=== PATIENT | female | born 1975 | race Caucasian/White ===

== ENCOUNTER 2019-07-06 11:53 | Outpatient (CLI) | payer BC, SELFPAY ==
--- NOTE | 2019-07-06 | XR_ITS ---
WS: [id number] SHOULDER LEFT TECHNIQUE: 3 views of the left shoulder CLINICAL INFORMATION: SEVERE SHOULDER PAIN COMPARISON: None. FINDINGS: Enthesophyte at the supraspinatus insertion consistent with calcific tendinitis. Mild rotator cuff ar thropathy with narrowing of the subacromial space. AC joint is normal. Distal clavicle is normal. No acute fractures. XR/XR shoulder LT min 2V* [id number] IMPRESSION: 1. Mild rotator cuff arthropathy. 2. Calcific tendinitis with enthesophytes at the supraspinatus insertion..
== END 2019-07-06 11:54 | disposition home or self-care (01) ==
LOC: RADOUTREAD 07-07 10:27
PROVIDERS: Family Provider Family Medicine; Visit Provider Nurse Practitioner Family
DX: M75.32 Calcific tendinitis of left shoulder (principal); M25.512 Pain in left shoulder

== ENCOUNTER 2019-08-03 10:33 | Outpatient (CLI) | payer BC, SELFPAY ==
--- NOTE | 2019-08-03 10:39 | MM_ITS ---
WS: [id number] SCREENING DIGITAL MAMMOGRAM WITH CAD HISTORY: SCREENING COMPARISON: 07/17/2011 and 03/28/2004 Bilateral CC and MLO views submitted. Computer aided detection analyzed. Breast composition: There are scattered areas of fibroglandular density. No suspicious masses, microc alcifications or architectural distortion. There are a few small benign calcifications. MM/[id number] IMPRESSION: BI-RADS: 2-Benign FOLLOW UP: 1 Year Follow-up
== END 2019-08-03 10:34 | disposition home or self-care (01) ==
LOC: RADSHAW 10:37
PROVIDERS: Family Provider Family Medicine; PCP Nurse Practitioner Family; Visit Provider Nurse Practitioner Family
DX: Z12.31 Encounter for screening mammogram for malignant neoplasm of breast (principal)
CPT/HCPCS: 77067

== ENCOUNTER 2021-07-23 09:45 | Outpatient (CLI) | payer OTHER, SELFPAY ==
--- NOTE | 2021-07-23 09:55 | MM_ITS ---
WS: [id number] BILATERAL DIGITAL SCREENING MAMMOGRAPHY WITH CAD CLINICAL INFORMATION: SCREENING HISTORY: Screening mammogram. No current complaints. COMPARISON: August 03, 2019 TECHNIQUE: Bilateral CC and MLO views. FINDINGS: The breasts are composed of heterogeneous fibroglandular density tissue, which can limit the detectio n of small underlying mass lesions. A few punctate calcifications. Stable clustered calcifications ri ght breast. No suspicious mass, asymmetry, calcifications, or architectural distortion. No evidence o f malignancy. MM/[id number] IMPRESSION: BI-RADS: 2-Benign FOLLOW UP: 1 Year Follow-up Recommend return to annual screening mammography.
== END 2021-07-23 09:46 | disposition home or self-care (01) ==
LOC: RADSHAW 09:54
PROVIDERS: PCP Nurse Practitioner Family; Visit Provider Nurse Practitioner Family
DX: Z12.31 Encounter for screening mammogram for malignant neoplasm of breast (principal)
CPT/HCPCS: 77067

== ENCOUNTER → 2021-08-29 14:35 | Outpatient (BNVA) | payer OTHER, SELFPAY | PROVIDERS: PCP Nurse Practitioner Family; Referring Provider Nurse Practitioner Family; Visit Provider Obstetrics & Gynecology | DX: R32 Unspecified urinary incontinence (principal) | CPT/HCPCS: 87086 ==

== ENCOUNTER → 2021-10-15 07:59 | Outpatient (BNVA) | payer OTHER, SELFPAY | PROVIDERS: PCP Nurse Practitioner Family; Visit Provider Obstetrics & Gynecology | DX: Z01.812 Encounter for preprocedural laboratory examination (principal); Z01.818 Encounter for other preprocedural examination; N81.2 Incomplete uterovaginal prolapse; N39.3 Stress incontinence (female) (male); Z20.822 Contact with and (suspected) exposure to COVID-19 | CPT/HCPCS: 80053; 81000; 81025; 87635 ==

== ENCOUNTER 2021-10-17 13:53 | Observation (INO) | payer OTHER, SELFPAY ==
[2021-10-12 08:43] VITALS: BMI 39.9
[2021-10-12 09:26] LABS: Basophils % 0.7 %; Eosinophils # 0.1 10^3/uL (0.0-0.8); Eosinophils % 2.3 %; Hematocrit 41.7 % (37.0-47.0); Hemoglobin 13.6 g/dL (11.5-15.3); Lymphocytes # 1.9 10^3/uL (0.8-4.8); Mean Corpuscular HGB Conc 32.6 g/dL (30.0-36.0); Monocytes # 0.4 10^3/uL (0.2-0.9); Monocytes % 7.4 %; Neutrophils # 3.42 10^3/uL (1.8-7.7); Neutrophils % 57.3 %; Nucleated Red Blood Cells % 0 %; Platelet Count 425 10^3/cmm (130-400); Red Blood Count 4.85 10^6/uL (4.1-5.3); Red Cell Distribution Width 13.5 % (12.1-15.1)
[2021-10-12 09:52] LABS: Anion Gap 13.2 (5-19); Blood Urea Nitrogen 15 mg/dL (6-20); Calcium 8.4 mg/dL (8.5-10.5); Carbon Dioxide 25 mmol/L (22-29); Chloride 103 mmol/L (98-107); Glomerular Filtration Rate 107.2 mL/min (90-130); Glucose 90 mg/dL (65-115); Osmolality Calculated 284 mOsm/kg (285-295); Potassium 4.2 mmol/L (3.5-5.1); Sodium 137 mmol/L (136-145)
--- NOTE | 2021-10-12 12:36 | ANES.PREANE2 ---
Pre-Anesthetic Assessment Height/Weight: Height 1.65 m Weight 108.862 kg Preop Diagnosis: Uterine prolapse Operation Date: 10/17/21 08:00 Proposed Procedures p Laparoscopic Assist Vaginal Hysterectomy(Not Applicable) - Khang Skelton MD s Anterior Repair with allograft(Not Applicable) - Khang Skelton MD s Sling(Not Applicable) - Khang Skelton MD Familial anesthetic complications: Patient has hx of PONV and pruritus with narcotics Was Beta Jennie taken within 24 hours: N/A Was Clonidine taken within 24 hours: N/A Social No alcohol and No tobacco Exam alert, oriented x 3, clear to auscultation bilaterally and regular rate & rhythm Airway Submandibular: within normal limits Cervical ROM: within normal limits Mallampati: Class II Dentition: false History/ROS No significant complaints Pulmonary None reported CV/HEM None reported METS > 4 Uterine prolapse Hepatic None reported GI Gastroesophageal Reflux Disease (Well controlled ) Metabolic None reported Musc/skel Osteoarthritis/DJD Neuropsych None reported Anesthetic Plan ASA status: 2 Anesthesia: Anesthesia Evaluation and General Other: We discussed risk and benefits of general anesthesia including PONV, sore throat (sometimes severe), corneal abrasion, positioning and peripheral nerve injuries, life threatening allergic reaction, post operative ICU admission requiring prolonged intubation, stroke, heart attack, , and rare incidences of recall. Patient consents to proceed with general anesthesia. Risk of > 500 ml blood loss (7ml/kg in children): No Other Pertinent Information Plan diphenhydramine and scopalamine for hx of PONV and pruritus with narcotics Medications/Allergies Home Medications Medication Instructions Recorded Confirmed Last Taken Type diclofenac sodium 75 mg 75 mg PO BID 08/29/21 10/12/21 Unknown History tablet,delayed release omeprazole 20 mg capsule,delayed 20 mg PO DAILY 08/29/21 10/12/21 Unknown History release Allergies Allergy/AdvReac Type Severity Reaction Status Date / Time codeine Allergy Throat Verified 10/12/21 08:41 swelling--can take hydrocodone [facility] Anesthesia Medical History Arthritis Diagnosed in 2017 and she takes pain medication as needed and has received intra-articular steroid injections. Managed by PMD GERD (gastroesophageal reflux disease) Diagnosed in her 30s and has been on medication. Has not had an endoscopy. No pertinent past medical history Denies diabetes, asthma, hypertension, seizures, DVT/PE PCP: JOLIE Modi Surgical History H/O lumpectomy From right axilla benign per patient S/P section x4 1994, 1996, 1998 and 2000 S/P dilation and curettage 1993-done for miscarriage S/P tubal ligation 2001--laparoscopic tubal ligation Family History Mother Breast cancer diagnosed at age 41 or 42 Grandmother Colon cancer paternal, diagnosed in her 90s Denies family history of Ovarian cancer Dementia Heart disease Hyperlipidemia Suicide Hypertension Uterine cancer Thyroid condition Stroke Data Anesthesia : 10/12/21 09:00 10/12/21 09:00 Short CBC 10/12/21 Range/Units 09:00 WBC 6.0 (4.0-10.0) 10^3/uL Hgb 13.6 (11.5-15.3) g/dL Hct 41.7 (37.0-47.0) % MCV 86.0 (81-99) fl Plt Count 425 H (130-400) 10^3/cmm Neut % (Auto) 57.3 % Neut # (Auto) 3.42 (1.8-7.7) 10^3/uL BMP 10/12/21 09:00 Sodium 137 Potassium 4.2 Chloride 103 Carbon Dioxide 25 BUN 15 Creatinine 0.6 Glucose 90 Calcium 8.4 L Blood Bank 10/12/21 09:00 Blood Type A Positive Rho(D) Type Positive Antibody Screen Negative Cardiac Studies: No Data to Display
[2021-10-17] VITALS (33 sets, daily range): BP systolic 66–148; BP diastolic 30–93; PULSE 47–91; RESP 4–22; TEMP 36.1–37; O2SAT 92–100; BMI 39.9
[2021-10-17 06:48] LABS: OR HCG Qualitative Urine Negative (Negative)
[2021-10-17] MEDS: scopolamine 1.5 Patch 1 PATCH TRANSDERMA (07:11)
[2021-10-17] MEDS: sodium chloride 0.9% 1,000 ML 30 ML IV (07:11)
--- NOTE | 2021-10-17 07:37 | P.ANESUD_ITS ---
Pre-Anesthetic Update Pre-Anesthetic Assessment: Date of Surgery/Procedure: 10/17/21 Preop Lily gnosis: Uterovaginal prolapse with cystocele stage III and stress urinary incontine Proposed Procedure: Operation Date: 10/17/21 08:00 Proposed Procedures p Laparoscopic Assist Vaginal Hysterectomy(Not Applicable) - Khang Skelton MD s Anterior Repair with allograft(Not Applicable) - Khang Skelton MD s Sling(Not Applicable) - Khang Skelton MD Any changes to Pre-Anesthetic Assessment?: No Last Intake: Intake Last Liquid Date 10/16/21 Last Liquid Time 23:59 Last Solid Date 10/16/21 Last Solid Time 20:00 Vitals: Temperature 97.7 F 10/17/21 06:41 Temperature Source Temporal Artery S can 10/17/21 06:41 Pulse Rate 63 10/17/21 06:41 Respiratory Rate 17 10/17/21 06:41 Blood Pressure 148/93 10/17/21 06:[address] n 111 10/17/21 06:41 Pulse Oximetry 100 10/17/21 06:41 Oxygen Delivery Me thod 10/17/21 06:46 Exam: Pre-Anes Outpt Exam: alert, oriented x 3, clear to auscultation bilaterally and regular rate & rhythm Cardiac Studies: No Data to Display
--- NOTE | 2021-10-17 08:18 | W.PM.OPSUD ---
Surgery/Procedure H&P Update DATE OF PROCEDURE: October 17, 2021 DATE H&P PERFORMED: 10/15/21 H&P UPDATE INFORMATION: I have reviewed H&P completed within last 30 days, I have examined patient prior to procedure and No changes to prior documentation PREOP DIAGNOSIS: Uterovaginal prolapse with cystocele stage III and stress urinary incontine PLANNED PROCEDURE: Operation Date: 10/17/21 08:00 Proposed Procedures p Laparoscopic Assist Vaginal Hysterectomy(Not Applicable) - Khang Skelton MD s Anterior Repair with allograft(Not Applicable) - Khang Skelton MD s Sling(Not Applicable) - Khang Skelton MD
[2021-10-17] MEDS: estrogens Conjugated Cream 30 gm 1 APPLIC VAGINAL (11:55)
--- NOTE | 2021-10-17 12:12 | PM.OP ---
Operative Report Date of procedure: October 17, 2021 Pre-op diagnosis: Preop Diagnosis Uterovaginal prolapse with cystocele stage III and stress urinary incontine Post-op diagnosis: Same as above Procedure done: Laparoscopic-assisted vaginal hysterectomy with anterior colporrhaphy augmented with allograft, single incision mid urethral sling, posterior colporrhaphy, cystoscopy Pathology: Uterus Surgeon: Khang Skelton MD Estimated blood loss (mL): 500 IV fluids (mL): 1,900 Urine output (mL): 600 Complications: Bleeding Procedure: After informed consent, the patient was taken to the operating room where general anesthesia was administered. Pre-Procedure Time-Out verifying the correct patient identity, correct procedure verified with consent, correct site and side, correct patient position, availability of correct implants and any special equipment or requirements was performed and acknowledge by the OR team. She was placed in the dorsal lithotomy position and prepped and draped in sterile fashion. The patient was examined under anesthesia and found to have a normal uterus with normal adnexa. A Oleary catheter was placed in the bladder. A weighted speculum was placed in the vagina, and the anterior lip of cervix was grasped with the single toothed tenaculum. A uterine manipulator was advanced into the endocervical. Tenaculum was removed after uterine manipulator was secured. The speculum was removed from the vagina. The attention was brought to abdomen after changing gloves. The base of the umbilicus was grasped with an Allis clamp and with 2 towel clamp bilaterally tenting up the umbilicus an intraumbilical incision was made with a scalpel. While tenting up on the abdomen, a Verres needle with sleeve was admitted into the intra-abdominal cavity. A saline drop test was performed and noted to be within normal limits. Pneumoperitoneum was attained with 4 liters of carbon dioxide. The Verres needle was removed. Then a 5 mm Optiview trocar and cannula were inserted under direct visualization without complications. Trocars were removed and the laparoscope was inserted and connected to the video camera light source. A 5 mm trocar and cannula were placed in the right lower quadrant under direct visualization after infiltration of 0.5% Marcaine with epinephrine. A 5 mm trocar and cannula were placed in the left lower quadrant under direct visualization after infiltration of 0.5% Marcaine with epinephrine. The pelvic contents were visualized and noted a small uterus, deep cul-de-sac, normal bilateral fallopian tubes and ovaries, normal appendix, and both ureters were identified crossing the pelvic brim and pelvic sidewall. The left round ligament was coagulated and transected using ENseal device. The left broad ligament was opened down to the level of the uterine artery and vein. The left infundibulopelvic ligament was coagulated using ENseal and then transected. The right round ligament was coagulated and transected using ENseal, and the right broad ligament was opened down to the level of the right uterine artery and vein. The right infundibulopelvic ligament was coagulated and transected using ENseal. Peritoneum of the lower uterine segment was entered using ENseal, and the bladder was dissected off the lower uterine segment using blunt dissection. Careful inspection revealed complete hemostasis. A weighted speculum was placed in the posterior vaginal wall and the right-angle retractor used to visualize the cervix. The cervix was grasped across the anterior lip with a single-toothed tenaculum and circumferentially infiltrated with 1% Xylocaine with epinephrine at this time. The cervix was circumferentially excised with the scalpel. The vaginal mucosa was dissected superiorly with sharp dissection. The anterior peritoneal reflection was identified, and it was entered with Metzenbaum scissors. A posterior colpotomy was made through the cul-de-sac space. The posterior peritoneum was identified in similar fashion and Metzenbaum scissors were used to enter the cul-de-sac. At this time, a weighted speculum was placed, advanced posteriorly into the cul-de-sac. At this time, the left and right uterosacral ligaments were isolated and ligated with 0 Vicryl. The ENseal device was then used in a serial fashion up through the cardinal ligaments bilaterally. Finally, the uterine arteries were cross-clamped, cut, and ligated with the ENseal device. ENseal device was then used up through the broad ligaments superiorly and finally the uterus was rotated posteriorly. The left and right tubes were then cross-clamped and ligated with ENseal device. The uterus was excised and submitted for pathologic evaluation. At this time, [place] clamps were used to grasp the left and right ovaries, and they were removed per the patient's request. Curved Zeppelin clamps were placed across the infundibulopelvic ligaments bilaterally and curved scissors were used to excise the specimen from the Zeppelin clamp. The pedicles were doubly ligated bilaterally with 0 Vicryl and hemostasis noted to be achieved. No other abnormalities were noted in the pelvic cavity. A vertical midline incision was made beneath the midurethra, nearly 1.5 cm length. Careful submucosal dissection was performed bilaterally up to the interior portion of the inferior pubic ramus. The insertion of adductor longus tendon on the patient?s pubic ramus was identified as reference land darian. Palpated the notch along the internal edge of ischiopubic ramus where the adductor longus tendon and the inferior pubic ramus meet. The Altis single incision sling (SIS) was selected. Then the needle of the SIS inserted aiming at the location of this notch. One of the integrated self-fixating tips place onto the needle by sliding it over the end of the needle. The needle/sling assembly was inserted toward the location of identified reference notch making sure that the flat of the handle is perpendicular to the desired path. The needle was tracked along the posterior surface of the ischiopubic ramus until the midline darian on the mesh is approximately at the midline position under the urethra. The needle was removed and the same was repeated on the contralateral side until the appropriate sling tension under the urethra was achieved ensuring that the mesh lays flat. The needle was removed and vaginal incision was closed in a running interlocking fashion with 2-0 Vicryl. The vaginal mucosa was then injected in the midline with normal saline. The vaginal mucosa was scored in the midline with the Bovie approximately 1 cm medial to the urethral meatus to 1 cm distal to the vaginal cuff . This vaginal mucosa was then undermined and then incised in the midline with the Metzenbaum scissors. The lateral aspects of the vaginal mucosa were then grasped with the Allis clamps and the vaginal mucosa was then dissected off the underlying fascia with the Metzenbaum scissors. Again, there was noted to be quite a bit of oozing at the incision, which was controlled with cautery. After adequate dissection was performed, bilaterally. An the Coloplast allograft was modified at time of application to fit spacea, 4 x 4 cm piece . Coloplast allograft placed in front of cystocele ready to be implanted facing the vagina mucosa. Suture is placed at distal end of graft and placed towards vaginal cuff. Final suture is placed on proximal portion of the graft to complete the placement overlying the bladder. Then Interrupted vertical mattress sutures of 0 Vicryl were used to elevate the cystocele superiorly. The excessive vaginal mucosa was then trimmed with the Metzenbaum scissors and the vaginal mucosa was then reapproximated in the running interlocking fashion with 2-0 Vicryl. A posterior repair was performed next. An incision was made across the introitus. Metzenbaum scissors were used to tunnel beneath posterior vaginal mucosa until the apex of the rectocele bulge was reached. At this point, the rectum was from the posterior vaginal mucosa using sharp and blunt dissection, and the rectal bulge imbricated in the midline with interrupted sutures of 2-0 vicryl suture. Levator ani muscles on either side were approximated in the midline with interrupted 0 Vicryl sutures. Excess posterior vaginal mucosa was excised, and the vaginal episiotomy was repaired by approximating the posterior vaginal mucosa with a suture of Vicryl #0. At this time, instruments were removed from the patient's abdominopelvic cavity. Vaginal cuff closure and peritoneum were incorporated into one layer with 0 Vicryl suture in a continuous running interlocking fashion. Hemostasis was noted to be achieved. Then the Oleary catheter was removed and cystoscope was inserted. The bladder was filled with sterile water. Complete evaluation of the bladder mucosa was performed noting no lacerations, dimpling, tears, bleeding of the mucosa or muscular layers. Both ureteral orifices were identified. Prompt excretion of urine from both ureteral orifices was noted. Cystoscope was withdrawn. The Oleary catheter was replaced. Oleary catheter was then placed yielding clear lucía urine. A vaginal packing with Premarin cream was placed to provide support during the healing process. The patient tolerated the procedure well and was taken to the recovery room in a stable condition. Sponge and needle counts were correct x3.
[2021-10-17] MEDS: albumin 12.5 GM/50 ML VIAL IV (13:15)
[2021-10-17] MEDS: fentaNYL 50 mcg/mL INJ 2mL IVP (13:38)
[2021-10-17 14:21] LABS: Basophils % 0.2 %; Eosinophils % 0.1 %; Hemoglobin 12.5 g/dL (11.5-15.3); Lymphocytes # 1.3 10^3/uL (0.8-4.8); Lymphocytes % 7.4 %; Mean Corpuscular HGB Conc 30.5 g/dL (30.0-36.0); Mean Corpuscular Hemoglobin 27.7 pg (28.0-34.0); Mean Corpuscular Volume 90.7 fl (81-99); Mean Platelet Volume 9.4 fL (7.4-10.4); Monocytes # 0.2 10^3/uL (0.2-0.9); Monocytes % 1.3 %; Neutrophils # 15.83 10^3/uL (1.8-7.7); Neutrophils % 90.3 %; Nucleated Red Blood Cells % 0 %; Platelet Count 374 10^3/cmm (130-400); Red Blood Count 4.52 10^6/uL (4.1-5.3); Red Cell Distribution Width 13.6 % (12.1-15.1); White Blood Count 17.5 10^3/uL (4.0-10.0)
[2021-10-17] MEDS: ketorolac 30 mg/mL INJ IVP ×2 (14:35→20:27)
[2021-10-17] MEDS: dextrose 5%-lactated ringers 1,000 ML 125 ML IV ×2 (14:35→22:20)
--- NOTE | 2021-10-17 14:44 | ANE.PACU2 ---
Inpatient post-anesthesia follow up: Airway intact: Yes Vital signs: Temperature 97.2 F Pulse Rate 61 Respiratory Rate 15 Blood Pressure 109/59 Pulse Oximetry 94 Oxygen Delivery Me thod Room Air Oxygen Flow Rate 10 Fraction of Inspir ed Oxygen Hydration adequate: Yes Nausea and vomiting: No Pain level: 2 Mental status: Baseline
[2021-10-17] MEDS: HYDROcodone-acetaminophen 5-325 mg Tablet PO (17:36)
[2021-10-17] MEDS: docusate sodium 100 mg Capsule PO (17:36)
[2021-10-18] MEDS: HYDROcodone-acetaminophen 5-325 mg Tablet PO ×3 (00:52→14:15)
[2021-10-18] MEDS: ketorolac 30 mg/mL INJ IVP (03:06)
[2021-10-18 03:08] VITALS: BP 122/65; PULSE 72; TEMP 36.9; O2SAT 95
[2021-10-18 05:21] LABS: Hemoglobin 10.6 g/dL (11.5-15.3); Mean Corpuscular HGB Conc 32.1 g/dL (30.0-36.0); Mean Corpuscular Hemoglobin 28.4 pg (28.0-34.0); Mean Corpuscular Volume 88.5 fl (81-99); Mean Platelet Volume 9.3 fL (7.4-10.4); Platelet Count 339 10^3/cmm (130-400); Red Blood Count 3.73 10^6/uL (4.1-5.3); Red Cell Distribution Width 13.8 % (12.1-15.1); White Blood Count 15.3 10^3/uL (4.0-10.0)
--- NOTE | 2021-10-18 06:58 | PC.NURSE ---
vaginal packing removed at 0521 on 10/18/21 per order
[2021-10-18] MEDS: ibuprofen 800 mg tablet PO (08:59)
[2021-10-18] MEDS: docusate sodium 100 mg Capsule PO (08:59)
[2021-10-18 09:55] VITALS: BP 119/65; PULSE 73; RESP 16; TEMP 36.8
--- NOTE | 2021-10-18 11:43 | PM.OBGYDC ---
Discharge Providers ORGANIZATIONAL RESEARCH CONSULTANT Date of Admission: 10/17/21 13:53 Date of Discharge: 10/18/21 Attending Provider at Admission: Khang Skelton MD Attending Provider at Discharge: Khang Skelton MD Primary Care Provider: JOLIE Modi Diagnoses at Discharge Discharge Diagnosis (1) Uterovaginal prolapse: Status: Acute (2) PRABHA (stress urinary incontinence, female): Status: Acute (3) Cystocele with second degree uterine prolapse: Status: Acute Reason for Visit Reason for Visit: uterine prolapse cystocele stg3 rectocele stg2 USI Hospital Course Hospital Course Mrs. Mora 46-year-old female with a history of uterine cystocele stage III and urinary stress incontinence. Admitted for planned laparoscopic-assisted vaginal hysterectomy with an anterior colporrhaphy augmented with allograft single incision mid urethral sling, and posterior colporrhaphy with possible sacrospinous fixation. The laparoscopic assisted vaginal hysterectomy with anterior colporrhaphy augmented with allograft, single incision mid urethral sling and posterior colporrhaphy was performed, without complication with the exception of vaginal bleeding more than usual. Postop observation uneventful. She is afebrile and hemodynamically stable postoperative day 1. Tolerating diet well. Ambulating without difficulty. PVR however was elevated and the patient needs to be discharged home with a Oleary catheter and she was instructed to return to the clinic Friday. Physical Exam Narrative: GA: Alert and oriented ?3. HEENT: WNL. Heart: Regular rate and rhythm. Lungs: Clear to auscultation bilaterally. Abdomen: Bowel sounds present, nontender, minimal tenderness, incision clean and dry, no redness, pain or edema. FOOD SANITARIAN: No bleeding. Extremities: No edema, no cyanosis, no calves pain. Urinary Catheter Management: Oleary: Cath Placed During This Visit: yes, but has since been removed by the nurse Reason for Continuing Indwelling Catheter: Decision to DC Catheter Urinary Catheter Date of Insertion: 10/17/21 Urinary Catheter Time of Insertion: 08:59 Date Urinary Catheter Removed: 10/18/21 Time Urinary Catheter Discontinued: 05:21 History History History 6 Term 4 Miscarriages/Ectopic 2 0 Living Children 4 Discharge Data Studies Completed and Pending Pending at discharge Category Date Time Status ES surgery / GI images Routine Exams 10/17/21 06:36 Taken Pathology: Surgical [PTH] Routine Pth 10/17/21 12:28 Received Laboratory Results WBC 15.3 10^3/uL (4.0-10.0) H 10/18/21 05:15 RBC 3.73 10^6/uL (4.1-5.3) L 10/18/21 05:15 Hgb 10.6 g/dL (11.5-15.3) L 10/18/21 05:15 Hct 33.0 % (37.0-47.0) L 10/18/21 05:15 MCV 88.5 fl (81-99) 10/18/21 05:15 MCH 28.4 pg (28.0-34.0) 10/18/21 05:15 MCHC 32.1 g/dL (30.0-36.0) D 10/18/21 05:15 RDW 13.8 % (12.1-15.1) 10/18/21 05:15 Plt Count 339 10^3/cmm (130-400) 10/18/21 05:15 MPV 9.3 fL (7.4-10.4) 10/18/21 05:15 Neut % (Auto) 90.3 % 10/17/21 13:47 Lymph % (Auto) 7.4 % 10/17/21 13:47 [place] % (Auto) 1.3 % 10/17/21 13:47 Eos % (Auto) 0.1 % 10/17/21 13:47 Baso % (Auto) 0.2 % 10/17/21 13:47 Neut # (Auto) 15.83 10^3/uL (1.8-7.7) H 10/17/21 13:47 Lymph # (Auto) 1.3 10^3/uL (0.8-4.8) 10/17/21 13:47 [place] # (Auto) 0.2 10^3/uL (0.2-0.9) 10/17/21 13:47 Eos # (Auto) 0.0 10^3/uL (0.0-0.8) 10/17/21 13:47 Baso # (Auto) 0.0 10^3/uL (0.0-0.1) 10/17/21 13:47 Nucleated RBC % (auto) 0 % 10/17/21 13:47 Nucleated RBCs # 0.0 /100WBC 10/17/21 13:47 Sodium 137 mmol/L (136-145) 10/12/21 09:00 Potassium 4.2 mmol/L (3.5-5.1) 10/12/21 09:00 Chloride 103 mmol/L (98-107) 10/12/21 09:00 Carbon Dioxide 25 mmol/L (22-29) 10/12/21 09:00 Anion Gap 13.2 (5-19) 10/12/21 09:00 BUN 15 mg/dL (6-20) 10/12/21 09:00 Creatinine 0.6 mg/dL (0.5-0.9) 10/12/21 09:00 GFR Calculation 107.2 mL/min (90-130) 10/12/21 09:00 Glucose 90 mg/dL (65-115) 10/12/21 09:00 Calculated Osmolality 284 mOsm/kg (285-295) L 10/12/21 09:00 Calcium 8.4 mg/dL (8.5-10.5) L 10/12/21 09:00 Urine HCG, Qual Negative (Negative) 10/17/21 06:46 Blood Type A Positive 10/12/21 09:00 Rho(D) Type Positive 10/12/21 09:00 Antibody Screen Negative 10/12/21 09:00 Vitals Last Vital Signs Temp 98.2 F 10/18/21 09:55 Pulse 73 10/18/21 09:55 Resp 16 10/18/21 09:55 BP 119/65 10/18/21 09:55 Pulse Ox 95 10/18/21 03:08 Discharge Plan Discharge Patient Disposition: Home Condition: Stable Prescriptions: New ibuprofen 800 mg tablet 800 mg PO TID PRN (Reason: pain) Qty: 60 0RF hydrocodone-acetaminophen 5-325 mg tablet 1 tab PO Q4H PRN (Reason: pain) Qty: 20 0RF Iron (ferrous sulfate) 325 mg (65 mg iron) tablet 325 mg PO BID Qty: 60 0RF Colace 100 mg capsule 100 mg PO BID Qty: 60 0RF acetaminophen 325 mg capsule 325 mg PO Q4H PRN (Reason: fever or pain) Qty: 60 0RF Continued diclofenac sodium 75 mg tablet,delayed release (DR/EC) 75 mg PO BID 0RF omeprazole 20 mg capsule,delayed release(DR/EC) 20 mg PO DAILY 0RF Discharge Orders: Discharge Order (Routine); Ordered 10/18/21 Ordered By: Khang Skelton Referrals: Khang Skelton MD [Physician] - 10/22/21 9:30 am (Oleary removal 10/22/2021 at 0930am) Discharge Diet: Advance as tolerated and Usual diet Discharge Activity: Limit activity as instructed Patient Instructions: Postoperative Bleeding (DC), Laparoscopic Hysterectomy (DC), Bladder Sling for Women (GEN), Vaginal Hysterectomy (GEN), Anterior Vaginal Repair (GEN), Posterior Vaginal Repair (GEN), OB Food/Drug Interaction Guide, Opioid Safety, OP Post-Operative Instructions, Post Operative Pain Activity Restrictions/Additional Instructions: My post 1. Please call [facility] on next working day to make your post-operative appointment in 2 weeks. 2. Please stay home until you come back to the clinic on first post-operative check up. 3. Please follow instructions on your medications CAREFULLY. 4. If you have abdominal incision, do not cover it unless dressing is necessary because of drainage. OK to shower, but avoid bath. Leave steri-strips until they fall off. If they are still on one week after surgery, you may remove them. 5. If you had vaginal surgery or vaginal repair, Dr. Skelton may instruct you to take SITZ bath. 6. Yellow, blood tinged odorous vaginal discharge is usually normal after hysterectomy or vaginal surgeries. 7. No sexual intercourse, tampons, or douches until you are completely released from the post-operative care. 8. Avoid constipation by eating right and maybe using some Metamucil or Milk of Magnesia. 9. All prescription refills are given during the working hours. Please do no wait till it runs out. Call the clinic at [phone] before your medication runs out. The clinic will get in touch with your doctor to prescribe medications if necessary. 10. Please remain within 40 mile radius from our hospital because emergencies do happen now and then during the post-operative period. 11. If you have stairs at home, take one step at a time slowly and minimize the number of trips. It helps to stay in one floor for the next few days. No lifting except what you can lift by one hand until you are released from the post-operative care. 12. Driving is discouraged until you are well healed. It may be 3-4 weeks before you feel strong enough to drive. You should be able to turn and look through the rear window without pain and you should be able to push the brake pedal very hard without pain before you drive. No fast rules, but SAFETY should be your primary concern. DO NOT drive if you are on sedating medications such as narcotics. 13. Call the clinic (during working hours) to make urgent appointment or go to the Emergency room, if any of the following occurs: i. Vaginal bleeding becomes heavy, more than a period. ii. Incision becomes red and sore, or drains pus. iii. Your temperature is over 100.4 or you have chill. iv. IV site becomes red and swollen (a little ``knot?? is usually OK) v. Persistent nausea and vomiting vi. Persistent constipation or diarrhea vii. Rash or allergic reaction to medications. Discharge Attestations ORGANIZATIONAL RESEARCH CONSULTANT Time Spent in Discharge Care*: greater than 30 min Coding Level of Care Code Acute Automobile Contract Clerk for g Fwd Diagnoses Uterovaginal prolapse N81.4 PRABHA (stress urinary incontinence, female) N39.3 Cystocele with second degree uterine prolapse N81.2
[2021-10-18] MEDS: simethicone 80 mg Chew PO (14:16)
[2021-10-18 14:30] VITALS: BP 137/73; PULSE 71; RESP 16; TEMP 36.7
== END 2021-10-18 14:40 | disposition home or self-care (01) ==
LOC: OBGYN 13:53
PROVIDERS: Anesthesiology; Admitting Provider Obstetrics & Gynecology; PCP Nurse Practitioner Family; Visit Provider Obstetrics & Gynecology
PROC: 0UT9FZZ Resection of Uterus, Via Natural or Artificial Opening With Percutaneous Endoscopic Assistance (ICD-10-PCS; CPT 57260; principal; 2021-10-17 08:00)
PROC: 0JQC0ZZ Repair Pelvic Region Subcutaneous Tissue and Fascia, Open Approach (ICD-10-PCS; CPT 57240; 2021-10-17 08:00)
PROC: (CPT 57288; 2021-10-17 08:00)
PROC: 0TJB8ZZ Inspection of Bladder, Via Natural or Artificial Opening Endoscopic (ICD-10-PCS; CPT 52000; 2021-10-17 08:00)
DX: N81.4 Uterovaginal prolapse, unspecified (principal); N39.3 Stress incontinence (female) (male); N81.2 Incomplete uterovaginal prolapse; Z80.0 Family history of malignant neoplasm of digestive organs
CPT/HCPCS: 57260; 57288; 58550; 36415; 51702; 51798; 80048; 81025; 84703; 85025; 85027; 86850; 86900; 88305; C1713; C1762; G0378; J0690; J1100; J1170; J1200; J1885; J2250; J2405; J2704; J2710; J3010; J3490; J7030; P9047; Q9968

== ENCOUNTER 2022-10-16 10:01 | Day surgery (SDC) | payer OTHER, SELFPAY ==
[2022-10-15 11:56] VITALS: BMI 44.9
[2022-10-16 10:33] VITALS: BP 127/83; PULSE 69; RESP 16; TEMP 36.4; O2SAT 100
[2022-10-16] MEDS: sodium chloride 0.9% 1,000 ML 30 ML IV (10:44)
--- NOTE | 2022-10-16 11:50 | ANES.PREANE2 ---
Pre-Anesthetic Assessment Height/Weight: Height 1.65 m Weight 122.47 kg Temp Pulse Resp BP Pulse Ox O2 Del Method 97.6 F 69 16 127/83 100 Room Air 10/16/22 10:33 10/16/22 10:33 10/16/22 10:33 10/16/22 10:33 10/16/22 10:33 10/16/22 10:33 Preop Diagnosis: Uterovaginal prolapse with cystocele stage III and stress urinary incontine Operation Date: 10/16/22 11:30 Proposed Procedures p 53804 egd w/balloon dialation [id number] colonoscopy K21.9, K92.1 , R13.10(Not Applicable) - DO sandra Sommer Colonoscopy(Not Applicable) - Flaco Lopez DO Familial anesthetic complications: PONV Was Beta Jennie taken within 24 hours: N/A Was Clonidine taken within 24 hours: N/A Last intake: Intake Last Liquid Date 10/15/22 Last Liquid Time 23:30 Last Solid Date 10/14/22 Last Solid Time 22:00 Social No alcohol and No tobacco Exam alert and oriented x 3 Airway Submandibular: within normal limits Cervical ROM: within normal limits Mallampati: Class I Dentition: false History/ROS No significant history except as noted Pulmonary None reported CV/HEM None reported None reported Hepatic None reported GI Gastroesophageal Reflux Disease Metabolic Morbid Obesity [facility] None reported Neuropsych None reported Anesthetic Plan ASA status: 3 Anesthesia: Anesthesia Evaluation and MAC Medications/Allergies Home Medications Medication Instructions Recorded Confirmed Last Taken Type diclofenac sodium 75 mg 75 mg PO BID 08/29/21 10/16/22 10/15/22 History tablet,delayed release docusate sodium 100 mg capsule 100 mg PO BID 30 days #60 caps 11/26/21 10/16/22 10/15/22 Rx (Colace) pantoprazole 40 mg tablet,delayed 40 mg PO BID 09/24/22 10/16/22 10/15/22 History release Allergies Allergy/AdvReac Type Severity Reaction Status Date / Time codeine Allergy Throat Verified 10/15/22 11:53 swelling--can take hydrocodone Current Medications Generic Name Dose Route Start Last Admin Trade Name Freq PRN Reason Stop Dose Admin Sodium Chloride 1,000 mls @ 30 mls/hr 10/16/22 10:45 10/16/22 10:44 Sodium Chloride 0.9% IV 10/17/22 10:44 30 mls/hr .Q24H LUZ MARINA Administration PFSH Anesthesia Medical History Arthritis Diagnosed in 2017 and she takes pain medication as needed and has received intra-articular steroid injections. Managed by PMD GERD (gastroesophageal reflux disease) Diagnosed in her 30s and has been on medication. Has not had an endoscopy. No pertinent past medical history Denies diabetes, asthma, hypertension, seizures, DVT/PE PCP: JOLIE Modi Surgical History H/O carpal tunnel repair bilateral hands H/O lumpectomy From right axilla benign per patient H/O shoulder surgery right rotator cuff repair H/O: hysterectomy 10/17/2021- LAVH, anterior colporrhaphy augmented with allograft, SIS, posterior colporrhaphy and cystoscopy performed by Dr. Skelton at [facility] S/P section x4 1994, 1996, 1998 and 2000 S/P dilation and curettage 1993-done for miscarriage S/P tubal ligation 2001--laparoscopic tubal ligation Family History Mother Breast cancer diagnosed at age 41 or 42 Grandmother Colon cancer paternal, diagnosed in her 90s Denies family history of Ovarian cancer Dementia Heart disease Hyperlipidemia Suicide Hypertension Uterine cancer Thyroid condition Stroke Data Anesthesia Cardiac Studies: No Data to Display
--- NOTE | 2022-10-16 12:12 | W.PM.OPSUD ---
Surgery/Procedure H&P Update DATE OF PROCEDURE: October 16, 2022 DATE H&P PERFORMED: 09/24/21 H&P UPDATE INFORMATION: I have reviewed H&P completed within last 30 days, I have examined patient prior to procedure and No changes to prior documentation PREOP DIAGNOSIS: Uterovaginal prolapse with cystocele stage III and stress urinary incontine PLANNED PROCEDURE: Operation Date: 10/16/22 11:30 Proposed Procedures p 21913 egd w/balloon dialation [id number] colonoscopy K21.9, K92.1 , R13.10(Not Applicable) - Flaco Lopez DO s Colonoscopy(Not Applicable) - Flaco Lopez DO
[2022-10-16 12:54] VITALS: BP 110/74; PULSE 72; RESP 20; TEMP 36.1; O2SAT 100
[2022-10-16 13:06] VITALS: BP 130/85; PULSE 74; RESP 20; O2SAT 100
--- NOTE | 2022-10-16 15:05 | ANE.PACU2 ---
Inpatient post-anesthesia follow up: Airway intact: Yes Vital signs: Temperature 97.0 F Pulse Rate 74 Respiratory Rate 20 Blood Pressure 130/85 Pulse Oximetry 100 Oxygen Delivery Me thod Nasal Cannula Oxygen Flow Rate 2 Fraction of Inspir ed Oxygen Hydration adequate: Yes Nausea and vomiting: No Pain level: 2 Mental status: Baseline
== END 2022-10-16 13:27 | disposition home or self-care (01) ==
PROVIDERS: PCP Nurse Practitioner Family; Visit Provider Surgery
PROC: 0DJD8ZZ Inspection of Lower Intestinal Tract, Via Natural or Artificial Opening Endoscopic (ICD-10-PCS; CPT 45378; 2022-10-16 11:30)
DX: K21.9 Gastro-esophageal reflux disease without esophagitis (principal); Z80.0 Family history of malignant neoplasm of digestive organs; K92.1 Melena; R13.10 Dysphagia, unspecified; E66.01 Morbid (severe) obesity due to excess calories; Z68.41 Body mass index [BMI] 40.0-44.9, adult; K22.2 Esophageal obstruction; K20.90 Esophagitis, unspecified without bleeding
CPT/HCPCS: 43239; 43249; 45378; 88305; J2704; J7030

== ENCOUNTER 2024-04-22 13:39 | Outpatient (CLI) | payer OTHER, SELFPAY ==
--- NOTE | 2024-04-22 13:43 | MM_ITS ---
WS: [id number] Bilateral screening 3D tomosynthesis digital mammogram, 04/22/2024 1:43 PM Clinical Data: SCREENING Comparison: 02/20/2022, 08/03/2019, 07/17/2011. Findings: No spiculated masses or clustered calcifications are seen. There are no secondary signs of carcinoma . MM/MM scr BI tomosynthesis [id number] Impression: Negative bilateral mammogram unchanged. Recommend annual screening mammograms. BIRADS: 1 - Negative. FOLLOW UP: 1 Year Follow-up DENSITY: The breasts are almost entirely fatty. The CAD jukebox checker was used
== END 2024-04-22 13:40 | disposition home or self-care (01) ==
LOC: RAD 13:40
PROVIDERS: PCP Nurse Practitioner Family; Visit Provider Nurse Practitioner Family
DX: Z12.31 Encounter for screening mammogram for malignant neoplasm of breast (principal)
CPT/HCPCS: 77063; 77067

== ENCOUNTER 2024-04-27 14:35 | Outpatient (RCR) | payer OTHER, SELFPAY | END 2024-05-22 23:59 | disposition home or self-care (01) | LOC: SPT 14:35 | PROVIDERS: PCP Nurse Practitioner Family; Visit Provider Nurse Practitioner Family | DX: M25.512 Pain in left shoulder (principal) | CPT/HCPCS: 97110; 97161 ==

== ENCOUNTER 2024-05-25 06:00 | Outpatient (RCR) | payer OTHER, SELFPAY | END 2024-06-10 23:59 | disposition home or self-care (01) | LOC: SPT 06:00 | PROVIDERS: PCP Nurse Practitioner Family; Visit Provider Nurse Practitioner Family | DX: M25.512 Pain in left shoulder (principal) | CPT/HCPCS: 97110 ==

== ENCOUNTER 2024-06-18 12:07 | Outpatient (CLI) | payer OTHER, SELFPAY ==
--- NOTE | 2024-06-18 12:13 | MR_ITS ---
WS: [id number] MRI LEFT SHOULDER NONCONTRAST TECHNIQUE: Sagittal T2, coronal T1, T2 and proton density imaging. Axial gradient PDE imaging. CLINICAL INFORMATION: LEFT SHOULDER PAIN COMPARISON: None. FINDINGS: Moderate degenerative arthritis AC joint. Mild downsloping acromion. Impingement of the distal supras pinatus. Chronic thinning of the distal supraspinatus with tendinopathy. Mild tendinopathy infraspina tus. Trace subacromial subdeltoid fluid. Tiny intrasubstance/undersurface tear supraspinatus at the m yotendinous junction with a tiny amount of fluid. No tendon retraction. Normal teres minor. Subscapul lyly tendon appears intact. Biceps tendon is intact within the bicipital groove. Moderate degenerative narrowing of the glenohum eral articulation. Small amount of fluid in the subcoracoid bursa. Biceps labral anchor appears intact. Intra-articular biceps tendon appears intact. MR/MR shoulder LT wo con* [id number] IMPRESSION: 1. Moderate degenerative arthritis AC joint with impingement on the supraspina tus. Subacromial spurring. Small amount of subacromial subdeltoid fluid. 2. Tendinopathy supraspinatus and infraspinatus. 3. Tiny undersurface tear supraspinatus at the myotendinous junction. No tendo n retraction. 4. Normal biceps tendon in the bicipital groove. 5. Biceps labral anchor appears intact.
== END 2024-06-18 12:08 | disposition home or self-care (01) ==
LOC: RAD 12:08
PROVIDERS: PCP Nurse Practitioner Family; Visit Provider Nurse Practitioner Family
DX: M19.012 Primary osteoarthritis, left shoulder (principal); M75.42 Impingement syndrome of left shoulder; M75.92 Shoulder lesion, unspecified, left shoulder; M75.32 Calcific tendinitis of left shoulder
CPT/HCPCS: 73221

== ENCOUNTER 2025-04-27 09:15 | Outpatient (CLI) | payer OTHER, SELFPAY ==
--- NOTE | 2025-04-27 09:21 | MM_ITS ---
WS: [id number] Bilateral screening 3D tomosynthesis digital mammogram, 04/27/2025 9:31 AM Clinical Data: ANNUAL SCREENING Comparison: 04/22/2024, 07/23/2021, 08/03/2019, 07/17/2011, 03/28/2004. Findings: No spiculated masses or clustered calcifications are seen. There are no secondary signs of carcinoma. There are lymph nodes in both axilla. MM/MM scr BI tomosynthesis [id number] Impression: Negative bilateral mammogram unchanged. Recommend annual screening mammograms. BIRADS: 1 - Negative. FOLLOW UP: 1 Year Follow-up DENSITY: The breasts are almost entirely fatty. The CAD bag checker was used
== END 2025-04-27 09:16 | disposition home or self-care (01) ==
LOC: RAD 09:16
PROVIDERS: PCP Nurse Practitioner Family; Visit Provider Nurse Practitioner Family
DX: Z12.31 Encounter for screening mammogram for malignant neoplasm of breast (principal); R92.313 Mammographic fatty tissue density, bilateral breasts
CPT/HCPCS: 77063; 77067

== ENCOUNTER → 2025-05-04 10:20 | Outpatient (BNVA) | payer OTHER, SELFPAY | PROVIDERS: PCP Nurse Practitioner Family; Visit Provider Student in an Organized Health Care Education/Training Program | DX: M25.561 Pain in right knee (principal); M25.569 Pain in unspecified knee; M17.11 Unilateral primary osteoarthritis, right knee; Z46.89 Encounter for fitting and adjustment of other specified devices | CPT/HCPCS: 73560; 73565 ==

== ENCOUNTER 2025-05-04 11:53 | Outpatient (CLI) | payer OTHER, SELFPAY | END 2025-05-04 11:54 | disposition home or self-care (01) | LOC: SPT 11:53 | PROVIDERS: PCP Nurse Practitioner Family; Visit Provider Student in an Organized Health Care Education/Training Program | DX: Z46.89 Encounter for fitting and adjustment of other specified devices (principal); M17.11 Unilateral primary osteoarthritis, right knee | CPT/HCPCS: L1851 ==